=== PATIENT | female | born 1970 | race Two or more races ===

== ENCOUNTER 2025-04-24 13:16 | Inpatient (IN) | payer MEDICARE, MEDICAID ==
[~2025-04-24] VITALS: Ht 160 cm; Wt 73.1 kg
[2025-04-24 13:45] LABS: PLATELET COUNT (AUTO) 215 K/uL (150-450); RED BLOOD CELL COUNT(AUTO) 4.93 MIL/uL (4.00-5.20); RED CELL DISTRIBUTION WIDTH 14.7 % (11.5-14.5); WHITE BLOOD COUNT (AUTO) 5.5 K/uL (4.5-11.0)
[2025-04-24 13:48] LABS: CALCIUM, TOTAL 9.4 mg/dL (8.8-10.5); CREATININE 0.86 mg/dL (0.60-1.30); GLOMERULAR FILTR. RATE CALC > 60 mL/min (>60); GLUCOSE,RANDOM 154 mg/dL (70-110); SODIUM SERUM 147 mmol/L (136-145); UREA NITROGEN, BLOOD 31 mg/dL (7-18)
[2025-04-24] MEDS: SODIUM CHLORIDE 0.9% 1,000 ML IV ONE (13:53)
[2025-04-24] MEDS: PETROLATUM,WHITE 5 GM PACKET JELLY TP ONE (13:53)
[2025-04-24 13:55] LABS: COVID AG,FIA SOURCE NASAL SWAB
[2025-04-24] MEDS ORDERED: ASPI-1450 PO (14:00)
[2025-04-24] MEDS ORDERED: HYDR-5256 PO (14:00)
[2025-04-24] MEDS ORDERED: QUET200T5 PO (14:00)
[2025-04-24] MEDS ORDERED: PYRI25TA4 PO (14:00)
[2025-04-24] MEDS ORDERED: METF-1211 PO (14:00)
[2025-04-24] MEDS ORDERED: RIFA300C63 PO (14:00)
[2025-04-24] MEDS ORDERED: DIPH50CA39 PO (14:00)
[2025-04-24] MEDS ORDERED: METH4TAB3 PO (14:00)
[2025-04-24] MEDS ORDERED: ATOR20TA PO (14:00)
[2025-04-24] MEDS ORDERED: MELA5TAB40 PO (14:00)
[2025-04-24] MEDS ORDERED: CETI10TA77 PO (14:00)
[2025-04-24] MEDS ORDERED: SERT-162 PO (14:01)
[2025-04-24 14:24] LABS: SARS-COV2 (COVID) ANTIGEN,FIA Negative (Negative)
[2025-04-24] MEDS: LORazepam 2 MG/ML VIAL IVP ONE (14:34)
[2025-04-24] MEDS: ONDANSETRON HCL 4 MG/2 ML VIAL IVP ONE (14:34)
[2025-04-24 20:55] VITALS: BP 133/92; PULSE 74; RESP 20; TEMP 98.2; O2SAT 100
[2025-04-25] MEDS: ZOLPIDEM TARTRATE 10 MG TABLET PO PRN
[2025-04-25 09:11] LABS: PLATELET COUNT (AUTO) 193 K/uL (150-450); RED BLOOD CELL COUNT(AUTO) 4.92 MIL/uL (4.00-5.20); RED CELL DISTRIBUTION WIDTH 15.1 % (11.5-14.5); WHITE BLOOD COUNT (AUTO) 4.5 K/uL (4.5-11.0)
[2025-04-25] MEDS ORDERED: BENZOCAINE/MENTHOL [CEPACOL] LOZENGE PO PRN (09:15)
[2025-04-25] MEDS ORDERED: ACETAMINOPHEN 325 MG TABLET PO PRN (09:15)
[2025-04-25] MEDS ORDERED: MAGNESIUM HYDROXIDE SUSPENSION 30 ML UDCUP PO PRN (09:15)
[2025-04-25] MEDS ORDERED: OMEPRAZOLE 20 MG CAPSULE PO PRN (09:15)
[2025-04-25] MEDS ORDERED: DEXTROSE 50%-WATER 25 GM/50 ML SYRINGE IVP PRN (09:15)
[2025-04-25] MEDS ORDERED: ALBUTEROL SULFATE HFA 90 MCG/PUFF 8 GM INHALER IH PRN (09:15)
[2025-04-25] MEDS ORDERED: ONDANSETRON 4 MG TABLET PO PRN (09:15)
[2025-04-25] MEDS ORDERED: BACITRACIN 28 GM OINTMENT TP PRN (09:15)
[2025-04-25] MEDS ORDERED: IBUPROFEN 600 MG TABLET PO PRN (09:15)
[2025-04-25] MEDS ORDERED: PETROLATUM,WHITE 28 GM JELLY TP PRN (09:15)
[2025-04-25] MEDS ORDERED: MELATONIN 5 MG TABLET PO PRN (09:15)
[2025-04-25 09:17] VITALS: BP 134/94; PULSE 80; RESP 18; TEMP 98.1; O2SAT 100
[2025-04-25 09:46] LABS: APPEARANCE,URINE HAZY (CLEAR); GLUCOSE, URINE (UA) NEGATIVE (NEGATIVE); LEUKOCYTE ESTERASE ,URINE MODERATE (NEGATIVE); NITRATE,URINE NEGATIVE (NEGATIVE); OCCULT BLOOD,URINE TRACE (NEGATIVE); PH,URINE DRUG SCREEN 5.5 (5.0-8.0); SPECIFIC GRAVITIY, URINE 1.030 (1.003-1.030)
[2025-04-25 09:59] LABS: SQUAMOUS EPITHELIAL CELL,UR Moderate /LPF (None Seen)
[2025-04-25 10:05] LABS: ALCOHOL, URINE DRUG SCREEN NEGATIVE (NEGATIVE); AMPHET/METH SCREEN,URINE NEGATIVE (NEGATIVE); BARBITURATE SCREEN, URINE NEGATIVE (NEGATIVE); CANNABINOID SCREEN,URINE NEGATIVE (NEGATIVE); COCAINE SCREEN,URINE NEGATIVE (NEGATIVE); METHADONE SCREEN, URINE NEGATIVE (NEGATIVE)
[2025-04-25] MEDS: ASPIRIN 81 MG CHEWABLE TABLET PO SCH (11:12)
[2025-04-25] MEDS: ATORVASTATIN CALCIUM 20 MG TABLET PO SCH (11:12)
[2025-04-25] MEDS: PYRIDOXINE HCL 50 MG TABLET PO SCH (11:13)
[2025-04-25] MEDS: CETIRIZINE HCL 10 MG TABLET PO SCH (11:13)
[2025-04-25] MEDS: INSULIN LISPRO 100 UNITS/ML SQ PRN (12:02)
[2025-04-25 12:11] LABS: GLUCOMETER DEV NAME(LOC) 3E.C; GLUCOSE,POINT OF CARE 142 MG/DL (70-110)
[2025-04-25 13:54] LABS: ASPARTATE AMINOTRANSFERASE 20 U/L (15-37); CALCIUM, TOTAL 9.2 mg/dL (8.8-10.5); CHOL/HDL RATIO 5.8 (3.9-5.7); CREATININE 0.81 mg/dL (0.60-1.30); GLOMERULAR FILTR. RATE CALC > 60 mL/min (>60); GLUCOSE,RANDOM 150 mg/dL (70-110); LDL CHOL (CALC.) 155 mg/dL (0-130); SODIUM SERUM 149 mmol/L (136-145); TOTAL PROTEIN, SERUM 6.6 g/dL (6.4-8.2); UREA NITROGEN, BLOOD 24 mg/dL (7-18)
[2025-04-25 17:41] LABS: GLUCOMETER DEV NAME(LOC) 3E.C; GLUCOSE,POINT OF CARE 131 MG/DL (70-110)
[2025-04-25] MEDS: LOPERAMIDE HCL 2 MG CAPSULE PO PRN (19:16)
[2025-04-25 20:05] VITALS: BP 134/89; PULSE 99; RESP 18; TEMP 98.1; O2SAT 99
[2025-04-25 20:35] LABS: GLUCOMETER DEV NAME(LOC) 3E.C; GLUCOSE,POINT OF CARE 142 MG/DL (70-110)
[2025-04-26 06:45] LABS: GLUCOMETER DEV NAME(LOC) 3E.C; GLUCOSE,POINT OF CARE 127 MG/DL (70-110)
[2025-04-26 07:59] LABS: ASPARTATE AMINOTRANSFERASE 13 U/L (15-37); CALCIUM, TOTAL 8.9 mg/dL (8.8-10.5); CREATININE 0.65 mg/dL (0.60-1.30); GLOMERULAR FILTR. RATE CALC > 60 mL/min (>60); GLUCOSE,RANDOM 133 mg/dL (70-110); SODIUM SERUM 144 mmol/L (136-145); TOTAL PROTEIN, SERUM 6.3 g/dL (6.4-8.2); UREA NITROGEN, BLOOD 21 mg/dL (7-18)
[2025-04-26 11:07] VITALS: BP 122/91; PULSE 85; RESP 18; TEMP 97.4; O2SAT 100
[2025-04-26 11:41] LABS: GLUCOMETER DEV NAME(LOC) 3E.C; GLUCOSE,POINT OF CARE 148 MG/DL (70-110)
[2025-04-26 16:40] LABS: GLUCOMETER DEV NAME(LOC) 3E.C; GLUCOSE,POINT OF CARE 146 MG/DL (70-110)
[2025-04-26 20:30] LABS: GLUCOMETER DEV NAME(LOC) 3E.C; GLUCOSE,POINT OF CARE 96 MG/DL (70-110)
[2025-04-26 20:36] VITALS: BP 128/94; PULSE 85; RESP 16; TEMP 97.5; O2SAT 97
[2025-04-27 06:46] LABS: GLUCOMETER DEV NAME(LOC) 3E.C; GLUCOSE,POINT OF CARE 115 MG/DL (70-110)
[2025-04-27 08:29] VITALS: BP 118/68; PULSE 79; RESP 16; TEMP 97.9; O2SAT 100
[2025-04-27 12:00] LABS: GLUCOMETER DEV NAME(LOC) 3E.C; GLUCOSE,POINT OF CARE 122 MG/DL (70-110)
[2025-04-27 17:16] LABS: GLUCOMETER DEV NAME(LOC) 3E.C; GLUCOSE,POINT OF CARE 138 MG/DL (70-110)
[2025-04-27 21:05] LABS: GLUCOMETER DEV NAME(LOC) 3E.C; GLUCOSE,POINT OF CARE 134 MG/DL (70-110)
[2025-04-27 21:51] VITALS: BP 121/76; PULSE 87; RESP 18; TEMP 98; O2SAT 99
[2025-04-28 07:01] LABS: GLUCOMETER DEV NAME(LOC) 3E.C; GLUCOSE,POINT OF CARE 128 MG/DL (70-110)
[2025-04-28 10:35] VITALS: BP 109/72; PULSE 81; RESP 18; TEMP 97.7; O2SAT 100
[2025-04-28 11:50] LABS: GLUCOMETER DEV NAME(LOC) 3E.C; GLUCOSE,POINT OF CARE 110 MG/DL (70-110)
[2025-04-28 17:11] LABS: GLUCOMETER DEV NAME(LOC) 3E.C; GLUCOSE,POINT OF CARE 100 MG/DL (70-110)
[2025-04-28 20:31] VITALS: BP 111/74; PULSE 80; RESP 17; TEMP 97.6
[2025-04-28 21:21] LABS: GLUCOMETER DEV NAME(LOC) 3E.C; GLUCOSE,POINT OF CARE 170 MG/DL (70-110)
[2025-04-29 06:55] LABS: GLUCOMETER DEV NAME(LOC) 3E.C; GLUCOSE,POINT OF CARE 118 MG/DL (70-110)
[2025-04-29 09:09] VITALS: BP 126/78; PULSE 80; RESP 18; TEMP 97.4; O2SAT 98
[2025-04-29 12:01] LABS: GLUCOMETER DEV NAME(LOC) 3E.C; GLUCOSE,POINT OF CARE 101 MG/DL (70-110)
[2025-04-29 17:31] LABS: GLUCOMETER DEV NAME(LOC) 3E.C; GLUCOSE,POINT OF CARE 96 MG/DL (70-110)
[2025-04-29] MEDS: LITHIUM CARBONATE 300 MG CAPSULE PO SCH (17:33)
[2025-04-29 20:15] LABS: GLUCOMETER DEV NAME(LOC) 3E.C; GLUCOSE,POINT OF CARE 109 MG/DL (70-110)
[2025-04-29 20:24] VITALS: BP 102/69; PULSE 79; RESP 19; TEMP 96.9; O2SAT 100
[2025-04-30 06:21] LABS: GLUCOMETER DEV NAME(LOC) 3E.C; GLUCOSE,POINT OF CARE 90 MG/DL (70-110)
[2025-04-30 08:22] VITALS: BP 116/78; PULSE 78; RESP 18; TEMP 98.1; O2SAT 100
[2025-04-30] MEDS ORDERED: DOCOSANOL 10% 2 GM CREAM TP PRN (09:30)
[2025-04-30] MEDS: ASCORBIC ACID 500 MG TABLET PO SCH (10:13)
[2025-04-30 11:31] LABS: GLUCOMETER DEV NAME(LOC) 3E.C; GLUCOSE,POINT OF CARE 126 MG/DL (70-110)
[2025-04-30 17:51] LABS: GLUCOMETER DEV NAME(LOC) 3E.C; GLUCOSE,POINT OF CARE 97 MG/DL (70-110)
[2025-04-30 20:51] LABS: GLUCOMETER DEV NAME(LOC) 3E.C; GLUCOSE,POINT OF CARE 134 MG/DL (70-110)
[2025-04-30 21:44] VITALS: BP 112/82; PULSE 81; RESP 18; O2SAT 100
[2025-05-01 06:21] LABS: GLUCOMETER DEV NAME(LOC) 3EX.2; GLUCOSE,POINT OF CARE 107 MG/DL (70-110)
[2025-05-01 08:16] VITALS: BP 116/81; PULSE 79; RESP 17; TEMP 97.2; O2SAT 96
[2025-05-01 12:05] LABS: GLUCOMETER DEV NAME(LOC) 3EX.2; GLUCOSE,POINT OF CARE 128 MG/DL (70-110)
[2025-05-01 17:11] LABS: GLUCOMETER DEV NAME(LOC) 3EX.2; GLUCOSE,POINT OF CARE 106 MG/DL (70-110)
[2025-05-01 20:00] VITALS: BP 111/71; PULSE 88; RESP 18; TEMP 97.3; O2SAT 98
[2025-05-01 21:01] LABS: GLUCOMETER DEV NAME(LOC) 3EX.2; GLUCOSE,POINT OF CARE 140 MG/DL (70-110)
[2025-05-02 06:41] LABS: GLUCOMETER DEV NAME(LOC) 3EX.2; GLUCOSE,POINT OF CARE 103 MG/DL (70-110)
[2025-05-02 09:26] VITALS: BP 118/83; PULSE 64; RESP 18; TEMP 97.8; O2SAT 98
[2025-05-02 11:56] LABS: GLUCOMETER DEV NAME(LOC) 3EX.2; GLUCOSE,POINT OF CARE 124 MG/DL (70-110)
[2025-05-02 17:21] LABS: GLUCOMETER DEV NAME(LOC) 3EX.2; GLUCOSE,POINT OF CARE 128 MG/DL (70-110)
[2025-05-02 20:15] LABS: GLUCOMETER DEV NAME(LOC) 3EX.2; GLUCOSE,POINT OF CARE 107 MG/DL (70-110)
[2025-05-02 21:00] VITALS: BP 129/87; PULSE 89; RESP 18; TEMP 98.2; O2SAT 100
[2025-05-03 06:00] LABS: GLUCOMETER DEV NAME(LOC) 3EX.2; GLUCOSE,POINT OF CARE 101 MG/DL (70-110)
[2025-05-03 10:33] VITALS: BP 110/68; PULSE 74; RESP 18; TEMP 98; O2SAT 99
[2025-05-03 11:51] LABS: GLUCOMETER DEV NAME(LOC) 3EX.2; GLUCOSE,POINT OF CARE 90 MG/DL (70-110)
[2025-05-03 17:21] LABS: GLUCOMETER DEV NAME(LOC) 3EX.2; GLUCOSE,POINT OF CARE 100 MG/DL (70-110)
[2025-05-03 20:12] VITALS: BP 111/72; PULSE 80; RESP 18; TEMP 97.2; O2SAT 100
[2025-05-03 21:16] LABS: GLUCOMETER DEV NAME(LOC) 3EX.2; GLUCOSE,POINT OF CARE 109 MG/DL (70-110)
[2025-05-04 06:11] LABS: GLUCOMETER DEV NAME(LOC) 3EX.2; GLUCOSE,POINT OF CARE 109 MG/DL (70-110)
[2025-05-04 09:12] VITALS: BP 113/71; PULSE 80; RESP 18; TEMP 98.1; O2SAT 100
[2025-05-04 11:45] LABS: GLUCOMETER DEV NAME(LOC) 3EX.2; GLUCOSE,POINT OF CARE 93 MG/DL (70-110)
[2025-05-04 17:40] LABS: GLUCOMETER DEV NAME(LOC) 3EX.2; GLUCOSE,POINT OF CARE 105 MG/DL (70-110)
[2025-05-04 20:11] LABS: GLUCOMETER DEV NAME(LOC) 3EX.2; GLUCOSE,POINT OF CARE 102 MG/DL (70-110)
[2025-05-04 20:21] VITALS: BP 109/87; PULSE 89; RESP 18; TEMP 98; O2SAT 100
[2025-05-05 05:51] LABS: GLUCOMETER DEV NAME(LOC) 3EX.2; GLUCOSE,POINT OF CARE 94 MG/DL (70-110)
[2025-05-05 09:27] VITALS: BP 128/77; PULSE 77; RESP 17; TEMP 98.5; O2SAT 96
[2025-05-05 11:47] LABS: GLUCOMETER DEV NAME(LOC) 3EX.2; GLUCOSE,POINT OF CARE 86 MG/DL (70-110)
[2025-05-05 16:26] LABS: GLUCOMETER DEV NAME(LOC) 3EX.2; GLUCOSE,POINT OF CARE 84 MG/DL (70-110)
[2025-05-05 20:16] LABS: GLUCOMETER DEV NAME(LOC) 3EX.2; GLUCOSE,POINT OF CARE 123 MG/DL (70-110)
[2025-05-05 20:49] VITALS: BP 108/79; PULSE 81; RESP 18; TEMP 97.7; O2SAT 98
[2025-05-06 06:11] LABS: GLUCOMETER DEV NAME(LOC) 3EX.2; GLUCOSE,POINT OF CARE 97 MG/DL (70-110)
[2025-05-06 10:49] VITALS: BP 108/72; PULSE 78; RESP 18; TEMP 97.5; O2SAT 98
[2025-05-06 11:50] LABS: GLUCOMETER DEV NAME(LOC) 3EX.2; GLUCOSE,POINT OF CARE 116 MG/DL (70-110)
[2025-05-06] MEDS: MAG HYDROX/ALUMINUM HYD/SIMETH ES 30 ML SUSPENSION UDCUP PO PRN (12:17)
[2025-05-06] MEDS: DOCUSATE SODIUM 100 MG CAPSULE PO PRN (12:19)
[2025-05-06 16:31] LABS: GLUCOMETER DEV NAME(LOC) 3EX.2; GLUCOSE,POINT OF CARE 82 MG/DL (70-110)
[2025-05-06 20:16] LABS: GLUCOMETER DEV NAME(LOC) 3EX.2; GLUCOSE,POINT OF CARE 128 MG/DL (70-110)
[2025-05-06 21:02] VITALS: BP 114/71; PULSE 82; RESP 18; TEMP 96.7; O2SAT 100
[2025-05-07 06:06] LABS: GLUCOMETER DEV NAME(LOC) 3EX.2; GLUCOSE,POINT OF CARE 93 MG/DL (70-110)
[2025-05-07 08:39] VITALS: BP 108/75; PULSE 75; RESP 18; TEMP 98.6; O2SAT 98
[2025-05-07 11:26] LABS: GLUCOMETER DEV NAME(LOC) 3EX.2; GLUCOSE,POINT OF CARE 120 MG/DL (70-110)
[2025-05-07 21:25] VITALS: BP 114/65; PULSE 77; RESP 18; TEMP 98.6; O2SAT 100
[2025-05-08 09:53] VITALS: BP 105/71; PULSE 75; RESP 18; TEMP 98.6; O2SAT 100
[2025-05-08 20:16] VITALS: BP 115/84; PULSE 85; RESP 18; TEMP 97.6; O2SAT 100
[2025-05-09 08:25] VITALS: BP 118/72; PULSE 82; RESP 18; TEMP 97.3; O2SAT 100
[2025-05-09 21:41] VITALS: BP 119/69; PULSE 77; RESP 18; TEMP 97.6; O2SAT 98
[2025-05-10 09:58] VITALS: BP 115/75; PULSE 81; RESP 18; TEMP 98.7; O2SAT 98
[2025-05-10 23:03] VITALS: BP 113/73; PULSE 81; RESP 18; O2SAT 100
[2025-05-11 09:37] VITALS: BP 118/67; PULSE 85; RESP 16; TEMP 98; O2SAT 99
[2025-05-11 21:03] VITALS: BP 100/65; PULSE 75; RESP 16; TEMP 97.2; O2SAT 100
[2025-05-12 09:13] VITALS: BP 119/78; PULSE 83; RESP 16; TEMP 97.7; O2SAT 100
[2025-05-12] MEDS ORDERED: LITH300C3 PO (12:44)
[2025-05-12] MEDS ORDERED: ASPI81TA87 PO (12:46)
[2025-05-12] MEDS ORDERED: ATOR20TA65 PO (12:47)
[2025-05-12] MEDS ORDERED: CETI1SOL83 PO (12:48)
[2025-05-12] MEDS ORDERED: PYRI50CA2 PO (12:50)
[2025-05-12] MEDS ORDERED: ASCO500 PO (12:58)
[2025-05-12] MEDS ORDERED: QUET100T PO (12:59)
[2025-05-12] MEDS ORDERED: QUET300T2 PO (13:00)
== END 2025-05-12 15:00 | disposition home or self-care (01) | DRG 885 ==
LOC: EMS 13:16 → 3EC 20:55 → 3EI 04-30 23:15
PROVIDERS: ADMIT Psychiatry & Neurology Psychiatry; ATTEND Psychiatry & Neurology Psychiatry
DX: F31.9 Bipolar disorder, unspecified (principal); E11.65 Type 2 diabetes mellitus with hyperglycemia; R45.851 Suicidal ideations; K21.9 Gastro-esophageal reflux disease without esophagitis; M19.90 Unspecified osteoarthritis, unspecified site; I10 Essential (primary) hypertension; K59.00 Constipation, unspecified; G47.00 Insomnia, unspecified; F41.9 Anxiety disorder, unspecified; E78.5 Hyperlipidemia, unspecified; Z20.822 Contact with and (suspected) exposure to COVID-19; F42.9 Obsessive-compulsive disorder, unspecified; Z91.148 Patient's other noncompliance with medication regimen for other reason; Z86.15 Personal history of latent tuberculosis infection
CPT/HCPCS: 80048; 80053; 80061; 80178; 80307; 81001; 82962; 83036; 83735; 84436; 84439; 84443; 85025; 86592; 87086; 99285; G0480; J2060; J2405; J7030